=== PATIENT | female | born 1975 | race American Indian/Alaskan Native ===

== ENCOUNTER 2025-03-31 18:21 | Inpatient (IN) | payer BC, SELFPAY ==
[2025-03-31] VITALS (11 sets, daily range): BP systolic 90–137; BP diastolic 55–92
[2025-03-31] MEDS: MORPHINE SULFATE 2 MG IV ×3 (14:53→17:56)
[2025-03-31] MEDS: NSS 1000 IV (14:53)
[2025-03-31 15:03] LABS: Hematocrit 41.7 % (37.0-47.0); Hemoglobin 13.6 g/dL (12.0-16.0); Mean Corp Hgb Conc. 32.6 g/dL (33.0-37.0); Mean Corpuscular Volume 77.8 fL (81.0-99.0); Nucleated Red Blood Cells % 0 %; Platelet Count 327 10^3/uL (130-400); Red Cell Dist. Width 14.2 % (11.5-14.5)
[2025-03-31 15:14] LABS: ALT (SGPT) 20 U/L (0-35); AST (SGOT) 19 U/L (14-36); Albumin 4.7 g/dl (3.5-5.0); Alkaline Phosphatase 104 U/L (38-126); Blood Urea Nitrogen 7 mg/dl (7-17); Calcium 10.0 mg/dl (8.4-10.2); Carbon Dioxide 23 mmol/L (22-30); Chloride 108 mmol/L (98-107); Glucose 151 mg/dl (70-99); Potassium 4.4 mmol/L (3.5-5.1); Sodium 139 mmol/L (135-145); Total Protein 8.4 g/dl (6.3-8.2); eGFR > 60.00
--- NOTE | 2025-03-31 16:50 | ED.GENMED ---
History of Present Illness
<Nicky Berrios PA-C - Last Filed: 04/02/25 07:13>
General
Chief Complaint: Anal/Rectal Problem
Source: patient
Exam Limitations: none
Time Seen by Provider: 03/31/25 14:25
Nursing documentation reviewed up to this point in time: agreed with
History of Present Illness
History of Present Illness:
See MDM
Phy Exam
<Nicky Berrios PA-C - Last Filed: 04/02/25 07:13>
Physical Exam
Physical Exam:
See MDM
Course
<Nicky Berrios PA-C - Last Filed: 04/02/25 07:13>
Orders/Labs/Results
Orders:
Orders
03/31/25 Breakfast
NPO
Allow oral meds: Yes
Allow clear liquids: 4hrs prior to procedure
Comment: may have unrestricted clear liquid up to 4 hrs prior to scheduled procedure
03/31/25 14:[address] Pelvis With Iv Contrast Urgent
Comment:
Reason For Exam: perineum abscess/induration
03/31/25 14:46
0.9% Sodium Chloride 1000 ml [Nss] 1,000 ml IV BOLUS
Morphine Sulfate 2 mg IV NOW STA
03/31/25 14:51
Complete Blood Count/With Diff Urgent
Comprehensive Metabolic Panel Urgent
Lactic Acid Routine
03/31/25 15:30
Morphine Sulfate 2 mg IV NOW STA
03/31/25 16:48
Piperacillin/Tazo 3.375 Gram [Zosyn] 3.375 gram in 50 ml IV NOW
03/31/25 17:49
Morphine Sulfate 2 mg IV NOW STA
03/31/25 17:51
ColoRectal Surgery Consult Routine
Consulting Provider: Natanael López
Was physician already notified: Yes
03/31/25 17:56
Admit/Transfer Patient As Directed
Co-Sign Provider:
Level of Care: Inpatient admission
Assign to:: Medical/Surgical
Physician / Group: Jeannine
Diagnosis: Perianal Abscess
Reason for Hospitalization: IV abx, OR drainage of abscess
Expected length of stay greater than two midnights?: Yes
ELOS- Estimated Length of Stay in days: 3
I certify the patient meets the requirements for IP care: Yes
PRN Pain Medication Management As Directed
May give lesser potent ordered pain med per pt: Yes
preference::
Protocol:: Medication orders for pain may be administered in a
manner that supports deferring to patient preference
when the pt is:
- Requesting an ordered lesser potent pain medication.
Least to most potent pain medications are defined
as: acetaminophen < NSAID < tramadol < opioids
(morphine, oxycodone, hydromorphone).
- Requesting a lesser dose of the same medication IF
ORDERED.
- Requesting a less intrusive route of administration
if both routes are prescribed by the provider (PO <
IV).
03/31/25 17:58
Code Status As Directed
Resuscitation Status: Full Code
03/31/25 19:43
Dextrose 50%-Water [Dextrose 50% Syringe] 12.5 grams IV [id number] PRN
Glucagon [GlucaGen] 1 mg IM PRN PRN
Morphine Sulfate 2 mg IV Q4HPRN PRN
Ondansetron Injectable [Zofran] 4 mg IV Q6HPRN PRN
03/31/25 19:43
Activity As Directed
Activity Level: Out of Bed-Early Mobility
With Assistance
Bedside Glucose Monitoring As Directed
Frequency: AC&HS
Additional Instructions:: Change to q6h if pt on TPN, tube feeding or not eating
Bladder Scan As Directed
Follow Bladder Retention/Intermittent Cath Algorithm?: Yes
PRN if no void in __ hours: 6
Frequency: Per Retention Algorithm
If Bladder Scan Result >: 400
then:: Straight cath
I&O [Intake/ Output] As Directed
Frequency: q12h
Pneumatic Compression Sleeves As Directed
Type: Knee high
Straight Cath As Directed
Frequency: Per Retention Algorithm
Additional Instructions: straight cath as needed per acute urinary retention algorithm for 24 hrs
Additional Instructions: for bladder scan greater than 400 mL
Vital Signs As Directed
Frequency: Per unit guidelines
DX Deep Vein Thrombosis Video Routine
03/31/25 22:00
Piperacillin/Tazo 3.375 Gram [Zosyn] 3.375 gram in 50 ml IV Q6H
03/31/25 23:00
Acetaminophen [Tylenol] 650 mg PO Q4HPRN PRN
04/01/25 06:20
Basic Metabolic Panel IN AM
Complete Blood Count/No Diff IN AM
Glycohemoglobin (HgbA1c) IN AM
04/01/25 07:30
Insulin Aspart Corrective Low [Novolog Flexpen-Low Resistance] See Protocol SC AC
04/01/25 08:00
Dapagliflozin [Farxiga] 10 mg PO DAILY
Ezetimibe [Zetia] 10 mg PO DAILY
Lisinopril [Zestril] 5 mg PO DAILY
Rosuvastatin Calcium [Crestor] 20 mg PO DAILY
Sitagliptin Phosphate [Januvia] 100 mg PO DAILY
Abnormal Lab Results
03/31/25
14:51
WBC 14.5 H 10^3/uL
(4.8-10.8)
MCV 77.8 L fL
(81.0-99.0)
MCH 25.4 L pg
(27.0-31.0)
MCHC 32.6 L g/dL
(33.0-37.0)
Abs Immat Gran (auto) 0.1 H 10^3/uL
(0-0.05)
Absolute Neuts (auto) 10.5 H 10^3/uL
(1.4-6.5)
Absolute Monos (auto) 1.4 H 10^3/uL
(0.1-0.6)
Lymphocytes % 17.4 L %
(20.5-51.1)
Monocytes % 9.4 H %
(1.7-9.3)
Chloride 108 H mmol/L
(98-107)
Creatinine 0.5 L mg/dL
(0.6-1.0)
Glucose 151 H mg/dl
(70-99)
Total Protein 8.4 H g/dl
(6.3-8.2)
03/31/25 14:51
03/31/25 14:51
Vital Signs
Initial and Last Documented VS:
Initial Vital Signs
Temp Pulse Resp BP Pulse Ox
36.8 C 89 18 136/92 96
03/31/25 13:23 03/31/25 13:23 03/31/25 13:23 03/31/25 13:23 03/31/25 13:23
Last Documented Vital Signs
Temp Pulse Resp BP Pulse Ox
37.0 C 85 16 113/80 97
04/01/25 15:20 04/01/25 15:20 04/01/25 15:20 04/01/25 15:20 04/01/25 15:20
<Emmanuelle Larry DO - Last Filed: 03/31/25 18:14>
Orders/Labs/Results
Orders:
Orders
03/31/25 Breakfast
NPO
Allow oral meds: Yes
Allow clear liquids: 4hrs prior to procedure
Comment: may have unrestricted clear liquid up to 4 hrs prior to scheduled procedure
03/31/25 14:[address]
CT Pelvis With Iv Contrast Urgent
Comment:
Reason For Exam: perineum abscess/induration
03/31/25 14:46
0.9% Sodium Chloride 1000 ml [Nss] 1,000 ml IV BOLUS
Morphine Sulfate 2 mg IV NOW STA
03/31/25 14:51
Complete Blood Count/With Diff Urgent
Comprehensive Metabolic Panel Urgent
Lactic Acid Routine
03/31/25 15:30
Morphine Sulfate 2 mg IV NOW STA
03/31/25 16:48
Piperacillin/Tazo 3.375 Gram [Zosyn] 3.375 gram in 50 ml IV NOW
03/31/25 17:49
Morphine Sulfate 2 mg IV NOW STA
03/31/25 17:51
ColoRectal Surgery Consult Routine
Consulting Provider: Natanael López
Was physician already notified: Yes
03/31/25 17:56
Admit/Transfer Patient As Directed
Co-Sign Provider:
Level of Care: Inpatient admission
Assign to:: Medical/Surgical
Physician / Group: Jeannine
Diagnosis: Perianal Abscess
Reason for Hospitalization: IV abx, OR drainage of abscess
Expected length of stay greater than two midnights?: Yes
ELOS- Estimated Length of Stay in days: 3
I certify the patient meets the requirements for IP care: Yes
PRN Pain Medication Management As Directed
May give lesser potent ordered pain med per pt: Yes
preference::
Protocol:: Medication orders for pain may be administered in a
manner that supports deferring to patient preference
when the pt is:
- Requesting an ordered lesser potent pain medication.
Least to most potent pain medications are defined
as: acetaminophen < NSAID < tramadol < opioids
(morphine, oxycodone, hydromorphone).
- Requesting a lesser dose of the same medication IF
ORDERED.
- Requesting a less intrusive route of administration
if both routes are prescribed by the provider (PO <
IV).
03/31/25 17:58
Code Status As Directed
Resuscitation Status: Full Code
03/31/25 19:43
Dextrose 50%-Water [Dextrose 50% Syringe] 12.5 grams IV [id number] PRN
Glucagon [GlucaGen] 1 mg IM PRN PRN
Morphine Sulfate 2 mg IV Q4HPRN PRN
Ondansetron Injectable [Zofran] 4 mg IV Q6HPRN PRN
03/31/25 19:43
Activity As Directed
Activity Level: Out of Bed-Early Mobility
With Assistance
Bedside Glucose Monitoring As Directed
Frequency: AC&HS
Additional Instructions:: Change to q6h if pt on TPN, tube feeding or not eating
Bladder Scan As Directed
Follow Bladder Retention/Intermittent Cath Algorithm?: Yes
PRN if no void in __ hours: 6
Frequency: Per Retention Algorithm
If Bladder Scan Result >: 400
then:: Straight cath
I&O [Intake/ Output] As Directed
Frequency: q12h
Pneumatic Compression Sleeves As Directed
Type: Knee high
Straight Cath As Directed
Frequency: Per Retention Algorithm
Additional Instructions: straight cath as needed per acute urinary retention algorithm for 24 hrs
Additional Instructions: for bladder scan greater than 400 mL
Vital Signs As Directed
Frequency: Per unit guidelines
DX Deep Vein Thrombosis Video Routine
03/31/25 22:00
Piperacillin/Tazo 3.375 Gram [Zosyn] 3.375 gram in 50 ml IV Q6H
03/31/25 23:00
Acetaminophen [Tylenol] 650 mg PO Q4HPRN PRN
04/01/25 06:20
Basic Metabolic Panel IN AM
Complete Blood Count/No Diff IN AM
Glycohemoglobin (HgbA1c) IN AM
04/01/25 07:30
Insulin Aspart Corrective Low [Novolog Flexpen-Low Resistance] See Protocol SC AC
04/01/25 08:00
Dapagliflozin [Farxiga] 10 mg PO DAILY
Ezetimibe [Zetia] 10 mg PO DAILY
Lisinopril [Zestril] 5 mg PO DAILY
Rosuvastatin Calcium [Crestor] 20 mg PO DAILY
Sitagliptin Phosphate [Januvia] 100 mg PO DAILY
Abnormal Lab Results
03/31/25
14:51
WBC 14.5 H 10^3/uL
(4.8-10.8)
MCV 77.8 L fL
(81.0-99.0)
MCH 25.4 L pg
(27.0-31.0)
MCHC 32.6 L g/dL
(33.0-37.0)
Abs Immat Gran (auto) 0.1 H 10^3/uL
(0-0.05)
Absolute Neuts (auto) 10.5 H 10^3/uL
(1.4-6.5)
Absolute Monos (auto) 1.4 H 10^3/uL
(0.1-0.6)
Lymphocytes % 17.4 L %
(20.5-51.1)
Monocytes % 9.4 H %
(1.7-9.3)
Chloride 108 H mmol/L
(98-107)
Creatinine 0.5 L mg/dL
(0.6-1.0)
Glucose 151 H mg/dl
(70-99)
Total Protein 8.4 H g/dl
(6.3-8.2)
03/31/25 14:51
03/31/25 14:51
Vital Signs
Initial and Last Documented VS:
Initial Vital Signs
Temp Pulse Resp BP Pulse Ox
36.8 C 89 18 136/92 96
03/31/25 13:23 03/31/25 13:23 03/31/25 13:23 03/31/25 13:23 03/31/25 13:23
Last Documented Vital Signs
Temp Pulse Resp BP Pulse Ox
37.0 C 85 16 113/80 97
04/01/25 15:20 04/01/25 15:20 04/01/25 15:20 04/01/25 15:20 04/01/25 15:20
<Nicky Berrios PA-C - Last Filed: 04/02/25 07:13>
MDM/Problems Addressed
Differential Diagnosis Includes:
See MDM
MDM/Problems Addressed:
Note:
CHIEF COMPLAINT(S)
Anal pain for one week.
HISTORY OF PRESENT ILLNESS
The patient is a 49-year-old female who presents with a one-week history of anal pain. She reports intermittent issues with bowel movements, feeling sometimes constipated and other times normal. The patient has a history of hemorrhoids and recalls
undergoing banding treatment approximately one year ago. Currently, she denies any rectal bleeding. She has not associated the pain with her hemorrhoids and suspects it might be something else, potentially an abscess, as suggested during the
examination. The pain was noted to be significant during the physical examination, particularly upon palpation near the anus. She denied fever, chills, nausea, or vomiting. pt denies anal intercourse. She did not insert anything into the rectum
prior to the pain.
The patient mentioned taking some pain medication, but she was unable to specify which one. She stated it provides slight relief. For the pain management, she was offered stronger analgesics through an IV, which she has agreed to. does not take
NSAIDS
PAST MEDICAL AND SURGICAL HISTORY
History of hemorrhoids, treated with banding last year.
ADDITIONAL HISTORY OBTAINED FROM SOURCES OTHER THAN THE PATIENT
The patient was brought to the facility by her sister.
SOCIAL DETERMINANTS AFFECTING HEALTH
The patient was dropped off at the facility by her sister, suggesting possible issues with transportation or independence.
ALLERGIES
The patient reports issues with 'Johnson,' which is unclear, but no official allergies were specified regarding morphine.
SOCIAL HISTORY
Anal intercourse occurred two weeks prior to the onset of symptoms.
REVIEW OF SYSTEMS
- Gastrointestinal: Intermittent constipation. Denies rectal bleeding.
- General: Denies fever, chills, nausea, or vomiting.
PHYSICAL EXAM
GENERAL: Alert , in no apparent distress
EYE: pupils equal and reactive
NECK: Supple
ENT: o/p clr, mmm.
CARDIAC: Regular rate and rhythm .
LUNGS: Clear breath sounds bilaterally, no acute respiratory distress, no wheezes/rales/rhonchi
ABDOMEN: Soft, without focal tenderness, no r/g, no cvat, normal bowel sounds
rectual: small external hemorrhoid ,nontnder, no rectal tendneress
perianal induration approx 3 cm no rash
very tender
suspect abscess
NEUROLOGICAL: Alert and oriented, no focal neuro deficits
SKIN: Warm and dry, skin intact.
MUSCULOSKELETAL: No edema, well perfused. neg hafsa's sign
PSYCH: Normal and appropriate interaction.
Nursing notes reviewed and vital signs reviewed.
PLAN
1. Administer intravenous analgesics for pain relief.
2. Conduct a CT scan of the abdominal and pelvic area with contrast to better visualize any possible abscess or infection near the anus.
3. Follow-up with the patients colorectal specialist.
DIFFERENTIAL DIAGNOSIS
The Differential Diagnosis includes, in no particular order and is not limited to:
1. Perianal abscess
2. Thrombosed hemorrhoid
3. Anal fissure
4. Rectal prolapse
5. Anorectal fistula
6. Inflammatory bowel disease
7. Infection secondary to anal intercourse
8. Anorectal cancer
9. Infectious proctitis
10. Foreign body in rectum
03/31/25 - 16:55
49 y/o diabetic
perianal pain x a few days
no discharge or bleeding
does have small ext hemorrhoid but her pain is due to induration and abscess in the perineum to the perianal region
no obvious extension into rectum on NELA but CT'D to be sure
pt has no signs sepsis.
ct confirms abscess.
Patient has an abscess that may not require immediate surgical intervention but needs monitoring. The plan is to start IV antibiotics since the area is sensitive and to consult a specialist for possible surgical drainage. Patient has religion
preferences against male surgeons and was informed of the absence of female colorectal specialists at this hospital. Despite the preference, it was emphasized that prompt intervention might be critical to prevent the infection from worsening.
Patient is experiencing significant pain, and pain management is being addressed. Monitoring and further discussions regarding surgical options and potential need for transfer to a facility with female surgical staff are ongoing.
<Nicky Berrios PA-C - Last Filed: 04/02/25 07:13>
*Pulse Oximetry
SaO2: 98
Oxygen Mode of Delivery: Room air
Patient hypoxic: no (97)
*Critical Care Note
Total Time (30-74mins, 75-104mins- exclusive of procedures): Not Applicable
ED Attending Note
<Nicky Berrios PA-C - Last Filed: 04/02/25 07:13>
-
Portions of this chart may have been created with voice recognition software.� Occasional wrong word or��sound alike� substitutions may have occurred due to the inherent limitations of voice recognition software.
<Emmanuelle Larry DO - Last Filed: 03/31/25 18:14>
ED Attending Note
Patient seen and examined by attending physician: Yes
I performed the substantive portion of visit, reviewed & personally made and approve the management plan that is documented in note by myself or MAHSA.: Yes
I performed a history and physical exam of patient and discussed management with resident, I reviewed resident's note and agree with documented findings and plan of care.: Yes
ED Attending Note:
49-year-old female presents to the ER for treatment of severe anal and rectal pain. No prior history of surgery to this area. Vital signs reviewed, patient is awake, alert, appears uncomfortable but in no acute distress, GCS is 15. I reviewed all
test results with physician assistant clinical director and patient.IV antibiotics ordered. Surgery team is consulted. Patient admitted to the hospitalist for definitive treatment of abscess. Patient feels comfortable with plan at current. She did require several
doses of IV morphine to help control her symptoms while in the emergency department.
Discharge Plan
Departure
Patient Disposition: Admit
Date of Disposition: 03/31/25
Time of Disposition: 17:41
Admit to: Med/Surg
Presentation/result/management discussed w/ accepting MD/DO: Hospitalist
Condition: Fair
Covid-19: Not Applicable
Discharge Problem:
Perianal abscess
Interventions
Interventions:
*Risk Screen - Suicide Last Done: 03/31/25 22:15
*General Assessment Last Done: 03/31/25 13:23
*Neglect/Abuse Screening Last Done: 03/31/25 14:08
*ED- Fall Risk Assessment Last Done: 03/31/25 14:08
*ED COVID-19 Vaccine History Last Done: 03/31/25 22:15
*Nursing Disposition Last Done: 03/31/25 18:44
GF-[id number]-Qtbaorntcv Assessment Last Done: 03/31/25 14:14
ED-Skin Assessment Last Done: 03/31/25 15:00
Discharge Date and Time
Discharge Date/Time: 03/31/25 18:45
[2025-03-31] MEDS: ZOSYN 50 IV ×2 (17:02→22:10)
--- NOTE | 2025-03-31 18:02 | HPS.HSE ---
Addendum entered and electronically signed by Jeremias Paez MD 03/31/25 18:40:
This is an addendum to the consultation note written by Jasmin Staples on 03/31/2025. �Patient seen and examined independently with WATERSHED COORDINATOR.
62-year-old female past medical history of hypertension, hyperlipidemia, type 2 diabetes, PAD status post right SFA stent in September 2024,
This is an addendum to H&P written by Joselin Guzman on 03/31/2025. �Patient seen and examined dependently with PA.
49-year-old female past medical history of hemorrhoids, diabetes, hypertension, hypercholesteremia presenting with 1 week of anal pain and constipation. �No fevers or chills nausea or vomiting.
Noted to have perianal abscess on examination without purulence.
Vital signs unremarkable.
Labs show leukocytosis. �CT pelvis showed large posterior/left posterior perianal abscess. �N.p.o., IV fluids, pain control, Zosyn, colorectal surgery consulted with plan for potential intervention today.
Original Note:
Family Physician
-
Family Physician: * NONE
Chief Complaint
-
Anal Pain
History of Present Illness
Patient is a 49 y/o male past medical history diabetes mellitus, hypertension, hyperlipidemia and prior hemorrhoids who presents with anal pain for one week. Patient reports increased swelling the area associated with the pain. She reports
constipation. She does have a prior history of hemorrhoids with banding about a year ago. She denies any rectal bleeding. She denies any fevers, sweats or chills.
Medical History
Past Medical History
Past Medical History: Reports Other
Additional Past Medical History:
Diabetes Mellitus, Type II
Essential Hypertension
Hyperlipidemia
Past Surgical History: Reports None
Social History
Tobacco: Non-smoker
Alcohol: None
Family History
Family History: Not pertinent
Allergies / Home Medications
Allergies reflects when Allergies were last updated in [facility] [facility].
Home Medications with original date entered in [facility] [facility]
Allergy/Medication List:
Allergies
Allergy/AdvReac Type Severity Reaction Status Date / Time
ibuprofen (From Motrin) Allergy Swelling Verified 03/31/25 15:36
Home Medications
empagliflozin 25 mg tablet (Jardiance) 25 mg PO DAILY 03/31/25
ezetimibe 10 mg tablet (Zetia) 10 mg PO DAILY 03/31/25
lisinopril 5 mg tablet 5 mg PO DAILY 03/31/25
metformin 1,000 mg tablet 1,000 mg PO BID 03/31/25
rosuvastatin 20 mg tablet (Crestor) 20 mg PO DAILY 03/31/25
sitagliptin phosphate 100 mg tablet (Januvia) 100 mg PO DAILY 03/31/25
Review of Systems
-
A 12 point ROS was completed and negative except as noted: Yes
Constitutional: Denies Fever
Respiratory: Denies Trouble Breathing
Cardiac: Denies Chest Pain
Abdomen/GI: Denies Abdominal Pain, Nausea or Vomiting
Physical Exam
Vital Signs
Vital Signs
Temp Pulse Resp BP Pulse Ox
98.4 F 91 18 137/85 97
03/31/25 14:58 03/31/25 17:58 03/31/25 13:23 03/31/25 17:58 03/31/25 17:58
Physical Exam
General: Comfortable and Conversant
HEENT: Anicteric and Moist mucous membranes
Respiratory: Clear and Non Labored Respirations
Cardiac: S1/S2 and Regular Rhythm
GI: Soft and Non Tender
Rectal: Deferred by Provider (Reviewed with ED provider who reported painful rectal exam with significant tenderness and induration )
Genito-urinary: Deferred by me
Musculoskeletal: No Clubbing, No Cyanosis and No Edema
Skin: Warm and Dry
Neuro: Awake, Alert, Oriented and Nonfocal/grossly intact
Psych: Calm
Laboratory Results
-
03/31/25 14:51
03/31/25 14:51
Laboratory Results
Lactic Acid 1.0 mmol/L (0.7-2.0) 03/31/25 14:51
Total Bilirubin 0.5 mg/dl (0.2-1.3) 03/31/25 14:51
AST 19 U/L (14-36) 03/31/25 14:51
ALT 20 U/L (0-35) 03/31/25 14:51
Alkaline Phosphatase 104 U/L (38-126) 03/31/25 14:[address]:
Large posterior/left posterior perianal abscess
Data Reviewed
-
CT Scan: Report Reviewed by me
Lab Data: Labs Reviewed by me
Impression/Plan
-
Perianal Abscess
-Consult Colorectal Surgery
-Continue NPO for possible OR this evening
-Continue Zosyn
Diabetes Mellitus, Type II
-Continue Jardiance and Januvia
-Hold Metformin
-Monitor sugars and continue coverage insulin
Essential Hypertension
-Continue lisinopril
Hyperlipidemia
-Continue Crestor and Zetia
DVT proph: SCDs
Code Status: Full Code
--- NOTE | 2025-03-31 19:06 | CON.CRS ---
Addendum entered and electronically signed by Natanael López MD 03/31/25 20:00:
Abscess is located in the left anterior quadrant
Original Note:
Consultation
-
Date/Time Consultation Requested: 03/31/15 @17:51
Date/Time Consultation Performed: 03/31/25 @19:00
Requesting Provider: Joselin Frey PA-C
Performing Provider: Tony López MD
Reason for Consultation: Perirectal abscess
Medical History
-
Chief Complaint: Rectal pain for 1 week
History of Present Illness:
49-year-old female with qzh-ceeplyo-kphktyyuo diabetes mellitus, hypertension, hyperlipidemia and a history of hemorrhoids who presents to the emergency room with rectal pain for the past week. There has been progressive swelling and pain but she
denies any fevers or chills. She has a history of constipation. She underwent a banding of a hemorrhoid about a year ago. She denies any rectal bleeding. She has not had a prior perirectal abscesses.
Past Medical History
Past Medical History: HTN, Hypercholesterolemia and NIDDM
Past Surgical History: None
Social History
Tobacco: Non-Smoker
Alcohol: None
Drug: None
Personal:
Living: With Family
Allergies / Home Medications
Allergy/AdvReac Type Severity Reaction Status Date / Time
ibuprofen (From Motrin) Allergy Swelling Verified 03/31/25 15:36
�Medication �Instructions �Recorded �Confirmed �Type
empagliflozin 25 mg tablet 25 mg PO DAILY 03/31/25 03/31/25 History
(Jardiance)
ezetimibe 10 mg tablet (Zetia) 10 mg PO DAILY 03/31/25 03/31/25 History
lisinopril 5 mg tablet 5 mg PO DAILY 03/31/25 03/31/25 History
metformin 1,000 mg tablet 1,000 mg PO BID 03/31/25 03/31/25 History
rosuvastatin 20 mg tablet (Crestor) 20 mg PO DAILY 03/31/25 03/31/25 History
sitagliptin phosphate 100 mg 100 mg PO DAILY 03/31/25 03/31/25 History
tablet (Januvia)
Review of Systems
-
History Source: Patient
All other systems: Negative unless noted
A 10 point review of systems was completed, and was negative except as per HPI.
Physical Exam
Vital Signs
Temp 98.4 F 03/31/25 14:58
Pulse 91 03/31/25 17:58
Resp Rate 18 03/31/25 13:23
Blood pressure 137/85 03/31/25 17:58
SaO2 97 03/31/25 17:58
Lab Results / Allergies
03/31/25 14:51
03/31/25 14:51
WBC 14.5 10^3/uL (4.8-10.8) H 03/31/25 14:51
Hgb 13.6 g/dL (12.0-16.0) 03/31/25 14:51
Hct 41.7 % (37.0-47.0) 03/31/25 14:51
Plt Count 327 10^3/uL (130-400) 03/31/25 14:51
Abs Immat Gran (auto) 0.1 10^3/uL (0-0.05) H 03/31/25 14:51
Neutrophils % 71.9 % (42.2-75.2) 03/31/25 14:51
Allergy/AdvReac Type Severity Reaction Status Date / Time
ibuprofen (From Motrin) Allergy Swelling Verified 03/31/25 15:36
Physical Exam
General: Well Developed, Well Nourished and No Apparent Distress
HEENT: Normocephalic and Anicteric
Respiratory: Clear
Cardiac: Regular Rhythm
GI: Soft, Non Tender and Non Distended
Rectal: Other (Induration and tenderness in the left posterior quadrant)
Neuro: Awake and Alert
Data Reviewed
-
CT Scan: Image Personally Visualized and interpreted, Report Reviewed by me and Discussed with Patient
Labs: Labs Reviewed by me and Discussed with Patient
Assessment / Plan
-
Perirectal abscess
I reviewed the current findings on the CT scan as well as her labs and my findings on exam. She has a perirectal abscess with a possible horseshoe extension to the right. I reviewed the treatment options including nonoperative management with
antibiotics versus surgery with the risks and benefits of each. I explained that without surgery the abscess is unlikely to resolve and she can develop sepsis. Risks of surgery include, but are not limited to, bleeding, persistent infection,
fistula formation, incontinence, the risks of sedation. I also reviewed the typical recovery and functional results. I explained that if a fistula is found, I might insert a drain and further surgery will be necessary. All questions answered and
she wishes to proceed. Consent obtained and arrangements are in progress for the OR.
[2025-03-31 19:55] LABS: Glucose - Point of Care 170 mg/dl (70-99)
--- NOTE | 2025-03-31 19:55 | W.IMMPOSTOP ---
Surgical Immed Post Op Note
-
Primary Surgeon: Tony López MD
Pre-op Diagnosis: Perirectal abscess
Post-op Diagnosis: Same with fistula
Procedure Performed: Incision and drainage of perirectal abscess and insertion of seton drain
Anesthesia Type: MAC/local
Specimen / Cultures: None
Estimated Blood Loss: 6cc
Complications: None
Operative Findings: Perirectal abscess in the left anterior quadrant with a fistula in the left anterior quadrant at the dentate line
Patient's family updated via telephone.
--- NOTE | 2025-03-31 21:00 | PTCARENOTE ---
Pt's arrived from PACU at 20:45 post I&D drainage Kathi-Rectal with placement of seton drain. PT's PMH NIDDM, HTN, HLD, Constipation & hemorroids. Pt arrived from PACU at 20:45. IV Zosyn ordered post-op. Pt has Rectal pain for 1 week with
progressive swelling and pain. She underwent a banding of a hemorrhoid about a year ago. She has not had a prior perirectal abscesses. Pt AOx3, does not require any thing for pain at this time, bed in a low position, call light in reach.
.
[2025-03-31 21:57] LABS: Glucose - Point of Care 250 mg/dl (70-99)
[2025-04-01] VITALS: BP 112/71
[2025-04-01] MEDS: ZOSYN 50 IV ×2 (03:20→09:56)
[2025-04-01 03:25] VITALS: BP 104/68
[2025-04-01 06:00] VITALS: BMI 26.3
[2025-04-01 06:49] LABS: Hematocrit 40.0 % (37.0-47.0); Hemoglobin 13.3 g/dL (12.0-16.0); Mean Corp Hgb Conc. 33.3 g/dL (33.0-37.0); Mean Corpuscular Volume 77.4 fL (81.0-99.0); Platelet Count 348 10^3/uL (130-400); Red Cell Dist. Width 14.1 % (11.5-14.5)
[2025-04-01 07:00] LABS: Blood Urea Nitrogen 7 mg/dl (7-17); Calcium 9.4 mg/dl (8.4-10.2); Carbon Dioxide 19 mmol/L (22-30); Chloride 107 mmol/L (98-107); Glucose 249 mg/dl (70-99); Potassium 4.6 mmol/L (3.5-5.1); Sodium 135 mmol/L (135-145); eGFR > 60.00
[2025-04-01 07:25] VITALS: BP 130/86
--- NOTE | 2025-04-01 07:57 | W.PN.HOSP.TC ---
Today's Communication/Plan
-
lantus for BG control
post op course as per CT surgery recs
cont abx. No culture data. Add vancomycin for now
Assessment / Plan
Assessment / Plan
Perianal Abscess
-Consulted Colorectal Surgery
-s/p OR for I&D of abscess 03/31
-Continue Zosyn
empiric vanc too
Drain management per surgery
Diabetes Mellitus, Type II
-Continue Jardiance and Januvia
-Hold Metformin
-Monitor sugars and continue coverage insulin
BG uncontrolled, start lantus 5 units daily inpt
Essential Hypertension
-Continue lisinopril with hold parameters
Hyperlipidemia
-Continue Crestor and Zetia
DVT proph: SCDs
Code Status: Full Code
Anticipated Discharge: Within 24 hours
Subjective/Interval History
-
Date of Service: April 01, 2025
Patient seen while eating breakfast, she denies any pain. No other acute issues.
Objective Data
-
Labs:
Laboratory Results
04/01/25
06:20
WBC 18.5 H
Hgb 13.3
Hct 40.0
Plt Count 348
Sodium 135
Potassium 4.6
Chloride 107
Carbon Dioxide 19 L
BUN 7
Creatinine 0.5 L
Glucose 249 H
Calcium 9.4
Vital Signs:
Vital Signs
Temp Pulse Resp BP Pulse Ox
98.5 F 96 18 104/68 94
04/01/25 03:25 04/01/25 03:25 04/01/25 03:25 04/01/25 03:25 04/01/25 03:25
I&O
03/31/25 04/01/25 04/02/25
06:59 06:59 06:59
Intake Total 50 / 50
Output Total 400 / 400
Balance -350 / -350
Review of Systems
-
All other systems: Reviewed and negative
Physical Exam
-
General: No Apparent Distress
HEENT: Moist Mucous Membranes, Anicteric and PERRLA
Respiratory: Clear to Auscultation; Negative Wheezes, Rales or Rhonchi
Cardiac: Regular Rhythm and S1/S2; Negative Murmur, Rub or Gallop
GI: Soft, Nontender, Nondistended and Normal Bowel Sounds
Musculoskeletal: No Edema
Skin: Warm and Dry; Negative Rash, Ulcers or Lesions
Neuro: Awake and AO x 3
Hematologic / Lymphatic: No Lymphadenopathy
Psych: Calm
Data Reviewed
-
CT Scan: Image personally visualized and interpreted and Report Reviewed by me
Labs: Labs Reviewed by me and Discussed with Patient
[2025-04-01 08:14] LABS: Glucose - Point of Care 240 mg/dl (70-99)
--- NOTE | 2025-04-01 08:51 | PHA.VAN.IN ---
Assessment
- Assessment
Renal Function: Appears similar to baseline
AUC Dosing Plan
- Dosing Variables
Dosing Weight (kg): 61
Dosing CrCl (ml/min): 125
Vd coefficient (L/kg): 0.7
- Empiric Dosing
Initial / Loading Dose: VANCO 1500MG X1
Maintenance Regimen: VANCO 750MG Q8H
Estimated AUC (mcg*h/mL): 514
Estimated Peak (mcg*h/mL): 30.3
Estimated Trough (mcg/ml): 14.2
Estimated Half Life (H): 6.4
- Monitoring
No levels ordered at this time: CONSIDER LEVEL IN NEXT FEW DAYS
Pharmacokinetics Vancomycin I
- -
Patient Age: 49
Patient Sex: Female
Vancomycin Day #: 1
Indication: Skin And Soft Tissue
Requesting Provider: DR. TIFF CAIN
Height / Weight:
Height 5 ft
Actual Weight 61.008 kg
Pertinent Past Medical History: DM2
- Vital Signs / Lab Results
Temp Pulse Resp BP Pulse Ox
98.5 F 89 16 130/86 98
04/01/25 07:25 04/01/25 07:25 04/01/25 07:25 04/01/25 07:25 04/01/25 07:25
Lab Results - Hematology
03/31/25 04/01/25
14:51 06:20
WBC 14.5 H 18.5 H
Lab Results - Chemistry
03/31/25 04/01/25
14:51 06:20
BUN 7 7
Creatinine 0.5 L 0.5 L
Albumin 4.7
03/31/25
14:51
Lactic Acid 1.0
[2025-04-01 09:13] LABS: Glycohemoglobin (HgbA1c) 7.7 % (4.0-5.6)
[2025-04-01] MEDS: LANTUS 0.05 UNITS SC (09:53)
[2025-04-01] MEDS: ZETIA 10 MG PO (09:54)
[2025-04-01] MEDS: VANCOCIN 530 MG IV (09:55)
[2025-04-01] MEDS: NOVOLOG FLEXPEN-LOW RESISTANCE 3 UNITS SC (09:56)
[2025-04-01] MEDS: ZESTRIL 5 MG PO (10:07)
[2025-04-01] MEDS: FARXIGA 10 MG PO (10:07)
[2025-04-01] MEDS: CRESTOR 20 MG PO (10:07)
[2025-04-01] MEDS: JANUVIA 100 MG PO (10:08)
--- NOTE | 2025-04-01 12:15 | W.PN.CRS1 ---
Today's Communication / Plan
-
sitz baths
colace
okay for d/c from our perspective
Assessment/Plan
-
POD#1 Incision and drainage of perirectal abscess and insertion of seton drain
WBC 18.5 (14.5), vitals normal
-Finish course of antibiotics
-Continue diet
-Sitz baths twice a day
-Stool softener BID
-Will need an eventual second stage surgery due to the fistula. Patient wants to follow up with a female. Dr. López has reached out to Dr Geller who will be happy to take care of her. Referral put in d/c.
-Discharge per primary team. Okay to leave from a surgical perspective.
Subjective Data
Procedure
Incision and drainage of perirectal abscess and insertion of seton drain
Subjective Data
Date of Service: April 01, 2025
Patient states she is not in much pain. She has no complaints.
Objective Data
-
Vital Signs
Temp Pulse Resp BP Pulse Ox
98.5 F 89 16 130/86 98
04/01/25 07:25 04/01/25 07:25 04/01/25 07:25 04/01/25 07:25 04/01/25 07:25
Intake & Output
03/31/25 04/01/25 04/02/25
06:59 06:59 06:59
Intake Total 50 / 50 830 / 830
Output Total 400 / 400
Balance -350 / -350 830 / 830
Intake:
Oral fluids 480 / 480
IV fluids (Total) 50 / 50 50 / 50
normosol 50 / 50
IV piggybacks 300 / 300
Output:
Urine, Voided 400 / 400
Other:
How many times incontinent 1
MODERATE amount urine
Number of approximated MODERATE 1
amounts of urine
Lab Results
04/01/25 06:20
04/01/25 06:20
Physical Exam
-
General: No Acute Distress and AOx3
Rectal: Other (godfrey in place, wound c/d/i, no pus when pushed, no erythema)
--- NOTE | 2025-04-01 12:27 | PTCARENOTE ---
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 Scratching head aggressive and looks in discomfort. Disrobed pt, no redness anywhere else. No difficulty breathing or tightness of chest. Within 15mins of stopping Vancomycin pt felt
relief. pharmacy said can be restarted at lower rate and give Benadryl. per Dr. Berumen stop Vanco and new order for Benadryl
--- NOTE | 2025-04-01 12:42 | W.DCSUMMARY ---
Discharge Summary
Discharge Data
Date of Admission: 03/31/25
Date of Discharge: 04/01/25
Total time spent discharging patient (in min): 35
-
Pending Results: No
Hospital Course
Attending physician on day of discharge:
Myra Berumen MD
Admission diagnosis:
Perianal abscess
Discharge diagnosis:
Perirectal abscess with fistula
Secondary diagnoses:
Diabetes
Hypertension
Hyperlipidemia
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
Consultations:
Colorectal surgery
Procedures:
03/31/2025: Incision and drainage of perirectal abscess and insertion of seton drain
Hospital course:
49F W/DM, HTN P/W anal pain. Found to have large perirectal abscess. Taken to OR by colorectal surgery and underwent I&D. Patient was empirically treated with Zosyn, Vanco was added but could not tolerate due to 'red man' syndrome. Patient was
transition to oral Augmentin for 10 days, and discharged with drain in place and with follow-up for second stage surgery.
Discharge disposition:
Home
Discharge Plan
-
Patient Disposition: Home (Routine Discharge)
Discharge Diagnosis/Procedures: Perianal abscess
Diet: Regular
Activity: No restrictions
Driving Restrictions: As prior to admission
Bathing Restrictions: None
Activity Restrictions/Additional Instructions:
Sitz bath twice a day. Take a stool softener twice a day. Follow-up with Dr. Celaya in the surgery clinic, as you will need another surgery because of the fistula.
Instructions: How to Do a Sitz Bath, Anal abscess and fistula (DC), Abscess incision and drainage - ED (DC)
Referrals:
Lizzy Lyons, DO [Non-Admitting Privileges, Surgical] - in two weeks
Referral Note: fistula f/u
NONE,* [Family Provider, Internal Medicine]
Prescriptions:
New
acetaminophen 325 mg Tablet
650 mg PO Q4HPRN PRN (Reason: mild pain/ fever>100.5F) Qty: 0 0RF
amoxicillin-pot clavulanate 875-125 mg tablet
1 tab PO BID 10 Days Qty: 20 0RF
docusate sodium 100 mg Capsule
100 mg PO BID Qty: 0 0RF
Continued
Jardiance 25 mg Tablet
25 mg PO DAILY
metformin 1,000 mg Tablet
1,000 mg PO BID@
lisinopril 5 mg Tablet
5 mg PO DAILY
ezetimibe [Zetia] 10 mg Tablet
10 mg PO DAILY
rosuvastatin [Crestor] 20 mg Tablet
20 mg PO DAILY
Januvia 100 mg Tablet
100 mg PO DAILY
Discharge Orders:
Discharge Patient (As Directed); Ordered 04/01/25
Ordered By: Myra Berumen
Discharge Date and Time
Print Language: MAORI
[2025-04-01 12:45] LABS: Glucose - Point of Care 153 mg/dl (70-99)
--- NOTE | 2025-04-01 12:52 | CM ---
Addendum entered by Patti Felton 04/01/25 15:35:
[facility] following [facility] declining due to lack of coverage.
Addendum entered by Patti Felton 04/01/25 13:07:
patient requested [facility], referral sent to [facility], await confirmation of acceptance. please fax clinical information to [facility] [phone]. physician contacted and indicated she would place consult. CM will continue to follow for discharge planning needs.
Original Note:
Patient seen at bedside on . Patient states that she lives alone in a 2 story home, sister lives nearby and will provide transportation home. Patient PCP is Dr. Azalea Skaggs and she has an appointment with physician on thursday. Patient uses the
[facility] pharmacy and patient indicated that she understood she was for discharge home today. Patient did not think she needed any further supports at this time. CM will continue to follow for discharge planning needs.
Plan; home with family supports.
[2025-04-01] MEDS: COLACE 100 MG PO (13:44)
[2025-04-01] MEDS: BENADRYL 50 MG PO (13:44)
[2025-04-01] MEDS: NOVOLOG FLEXPEN-LOW RESISTANCE 1 UNITS SC (13:45)
[2025-04-01 15:20] VITALS: BP 113/80
[2025-04-01 16:40] LABS: Glucose - Point of Care 165 mg/dl (70-99)
== END 2025-04-01 17:00 | disposition home or self-care (01) | DRG 349 ==
LOC: 2 SOUTH 18:21
PROVIDERS: Physician Assistant; Physician Assistant Medical; ADMITTING PHYSICIAN Hospitalist; ATTENDING PHYSICIAN Internal Medicine; CONSULT PHYSICIAN Surgery; EMERGENCY PHYSICIAN Emergency Medicine
PROC: 0D9Q00Z Drainage of Anus with Drainage Device, Open Approach (ICD-10-PCS; 2025-03-31)
DX: K61.2 Anorectal abscess (principal); E11.9 Type 2 diabetes mellitus without complications; I10 Essential (primary) hypertension; E78.00 Pure hypercholesterolemia, unspecified; Z79.84 Long term (current) use of oral hypoglycemic drugs; Z79.899 Other long term (current) drug therapy; T36.8X5A Adverse effect of other systemic antibiotics, initial encounter; K64.4 Residual hemorrhoidal skin tags; Z88.6 Allergy status to analgesic agent
CPT/HCPCS: 72193; 80048; 80053; 82962; 83036; 83605; 85025; 85027; 96361; 96365; 96375; 96376; 99285; Q9967

== ENCOUNTER 2025-04-21 17:25 | Emergency (ER) | payer BC, SELFPAY ==
[2025-04-21 17:30] VITALS: BP 159/101
[2025-04-21 23:15] VITALS: BP 150/90
--- NOTE | 2025-04-22 03:03 | ED.GENMED ---
History of Present Illness
General
Chief Complaint: Post Operative Problem(s)
Time Seen by Provider: 04/21/25 20:52
Nursing documentation reviewed up to this point in time: agreed with
History of Present Illness
History of Present Illness:
49-year-old female presents to the ER for treatment of constipation. Patient is status post I&D of perianal abscess/fistula with placement of seton drain (I reviewed discharge summary from colorectal, Dr López, dated 04/01/2015) patient has been
using stool softeners as recommended and has been having bowel movements, up until yesterday. She feels an urge to defecate but has been unable to pass any stool independently due to discomfort at her anus. She denies any fevers. She is not
currently on antibiotics. She denies any urinary difficulties. She has been eating without any issue. No vomiting. No anterior abdominal discomfort. She has an appointment upcoming with surgeon for follow-up, but not until April 28.
Review of Systems
Review of Systems
Allergies reviewed?: Yes
Phy Exam
Physical Exam
Physical Exam:
Patient is awake, alert, appears in no acute distress, head is NCAT, PERRL, EOMI mucous membranes moist, conjunctiva pink, heart regular rate and rhythm without murmurs or ectopy, lungs are clear to auscultation without wheezes rales or rhonchi, no
JVD, abdomen is soft and nontender on palpation, rectal exam reveals suture and drain present at 12:00, multiple internal and external hemorrhoids, no area of induration or fluctuance on digital rectal exam, pale soft stool present in the vault,
extremities without edema, GCS is 15
Course
Orders/Labs/Results
Orders:
Orders
04/21/25 21:47
Enema- Treatment ONCE
Type: Soap Suds
Labs are considered but not ordered given overall benign appearance of patient and absence of fever
Vital Signs
Initial and Last Documented VS:
Initial Vital Signs
Temp Pulse Resp BP Pulse Ox
97.9 F 86 16 159/101 98
04/21/25 17:30 04/21/25 17:30 04/21/25 17:30 04/21/25 17:30 04/21/25 17:30
Last Documented Vital Signs
Temp Pulse Resp BP Pulse Ox
97.9 F 86 18 150/90 98
04/21/25 17:30 04/21/25 17:30 04/21/25 20:00 04/21/25 23:15 04/21/25 17:30
MDM/Problems Addressed
Differential Diagnosis Includes:
Differential diagnoses to consider but not limited to constipation, recurrent abscess, bowel obstruction along with other etiologies considered
*Pulse Oximetry
SaO2: 98
Oxygen Mode of Delivery: Room air
Patient hypoxic: no
*Critical Care Note
Total Time (30-74mins, 75-104mins- exclusive of procedures): Not Applicable
Update Note
Update Note:
I reviewed patient presentation with Dr. López from colorectal. He would feel that based on my exam patient could be managed as an outpatient. I discussed with him possible treatment options including enema versus sitz bath's and MiraLAX, either
of which he would feel appropriate. Patient was given soapsuds enema with return of small amount of stool. She tolerated this well. I discussed with patient use of MiraLAX and need to follow-up with her surgeon for reevaluation and further care.
Patient expressed understanding of discharge instructions and had no questions prior to leaving department.
ED Attending Note
-
Portions of this chart may have been created with voice recognition software.� Occasional wrong word or��sound alike� substitutions may have occurred due to the inherent limitations of voice recognition software.
Discharge Plan
Departure
Patient Disposition: Home (Routine Discharge)
Date of Disposition: 04/21/25
Time of Disposition: 22:38
Patient with high blood pressure during this ER visit?: Yes
Discharge Problem:
Constipation
Instructions: How to take a sitz bath, Constipation in adults - ED (DC), BLOOD PRESSURE
Prescriptions:
No Action
Jardiance 25 mg Tablet
25 mg PO DAILY
metformin 1,000 mg Tablet
1,000 mg PO BID@
lisinopril 5 mg Tablet
5 mg PO DAILY
ezetimibe [Zetia] 10 mg Tablet
10 mg PO DAILY
rosuvastatin [Crestor] 20 mg Tablet
20 mg PO DAILY
Januvia 100 mg Tablet
100 mg PO DAILY
acetaminophen 325 mg Tablet
650 mg PO Q4HPRN PRN (Reason: mild pain/ fever>100.5F) Qty: 0 0RF
amoxicillin-pot clavulanate 875-125 mg tablet
1 tab PO BID 10 Days Qty: 20 0RF
docusate sodium 100 mg Capsule
100 mg PO BID Qty: 0 0RF
Referrals:
Kathy Gao MD [Family Provider, Family Practice]
Lizzy Lyons DO [Non-Admitting Privileges, Surgical] - Next open appointment
Activity Restrictions/Additional Instructions:
Continue using sitz baths 3 times daily. Start using miralax daily as available over the counter until you are seen in follow up with Dr Lyons. Continue using over the counter stool softner. Continue using tylenol as needed for pain
Interventions
Interventions:
*Risk Screen - Suicide Last Done: 04/21/25 23:16
*General Assessment Last Done: 04/21/25 17:30
*Neglect/Abuse Screening Last Done: 04/21/25 23:16
*ED- Fall Risk Assessment Last Done: 04/21/25 23:16
*ED COVID-19 Vaccine History Last Done: 04/21/25 17:30
*ED Influenza Vaccine History Last Done: 04/21/25 17:30
*Nursing Disposition Last Done: 04/21/25 23:16
ED-Skin Assessment Last Done: 04/21/25 22:10
Discharge Date and Time
Discharge Date/Time: 04/21/25 23:17
Print Language: PANAMANIAN
== END 2025-04-21 23:17 | disposition home or self-care (01) ==
LOC: EMR 17:25
PROVIDERS: EMERGENCY PHYSICIAN Emergency Medicine; FAMILY PHYSICIAN Family Medicine
DX: K59.00 Constipation, unspecified (principal); Z98.890 Other specified postprocedural states
CPT/HCPCS: 99283